=== PATIENT | male | born 2000 | race Caucasian/White ===

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

== ENCOUNTER 2018-09-17 18:51 | Emergency (ER) | payer BC ==
[~2018-09-17] VITALS: Ht 193 cm; Wt 111.4 kg
[2018-09-17 19:01] VITALS: Ht 193 cm; Wt 111.4 kg
[2018-09-17 20:01] LABS: APPEARANCE CLEAR (CLEAR); BILIRUBIN NEGATIVE (NEGATIVE); COLOR YELLOW (YELLOW); GLUCOSE NEGATIVE (NEGATIVE); KETONE NEGATIVE (NEGATIVE); NITRITE NEGATIVE (NEGATIVE); PROTEIN NEGATIVE (NEGATIVE); SPECIFIC GRAVITY 1.015 (1.005-1.020); UROBILINOGEN NORMAL (NORMAL)
[2018-09-18 01:36] VITALS: BP 138/84
== END 2018-09-18 01:36 | disposition other institution (70) ==
LOC: D.ER 18:51
PROVIDERS: Emergency Medicine
DX: N44.00 Torsion of testis, unspecified (principal); R10.30 Lower abdominal pain, unspecified